=== PATIENT | male | born 1940 | race Caucasian/White ===

== ENCOUNTER → 2020-03-06 | Outpatient (CLI) | payer MEDICARE ==
[2020-03-06 13:11] LABS: Basophils # (auto) 0.1 10 ^3/uL (0-0.2); Basophils % (auto) 1.2 % (0.0-2.0); Eosinophils # (auto) 0.1 10 ^3/uL (0-0.8); Eosinophils % (auto) 1.7 % (0.0-7.0); Hematocrit 43.6 % (41.0-53.0); Hemoglobin 15.1 g/dL (13.5-17.5); Lymphocytes # (auto) 1.6 10 ^3/uL (0.4-5.4); Lymphocytes % (auto) 28.6 % (10.0-50.0); Mean Corpuscular Hemoglobin 31.6 pg (28.0-32.0); Mean Corpuscular Hgb Conc. 34.6 g/dL (32.0-36.0); Mean Corpuscular Volume 91.3 fL (80.0-100.0); Monocytes # (auto) 0.7 10 ^3/uL (0-1.3); Monocytes % (auto) 12.2 % (0.0-12.0); Neutrophils # (auto) 3.1 10 ^3/uL (1.6-8.6); Neutrophils % (auto) 56.3 % (37.0-80.0); Nucleated Red Blood Cells % 0.1 %; Red Blood Cells 4.77 10^6/uL (4.5-5.90); Red Cell Distribution Width 14.3 % (11.8-14.3); White Blood Cell 5.5 10^3/uL (4.4-10.8)
[2020-03-06 13:20] LABS: Urine Bacteria NONE SEEN /hpf (None Seen); Urine Blood Negative /uL (Negative); Urine Mucus FEW (None Seen); Urine Specific Gravity 1.016 (1.001-1.035); Urine WBC 1 /hpf (0 - 3)
[2020-03-06 14:05] LABS: Albumin 3.8 g/dL (3.4-5.0)
[2020-03-06 14:11] LABS: BUN/Creatinine Ratio 12.5; Bilirubin, Total 0.9 mg/dL (0.2-1.0)
== END | disposition home or self-care (01) ==
LOC: LAB 12:56
PROVIDERS: ATTEND Internal Medicine
DX: Z12.5 Encounter for screening for malignant neoplasm of prostate (principal); I25.10 Atherosclerotic heart disease of native coronary artery without angina pectoris; F41.9 Anxiety disorder, unspecified; R73.03 Prediabetes
CPT/HCPCS: 36415; 80053; 80061; 81001; 83036; 84153; 85025

== ENCOUNTER 2022-04-07 14:58 | Emergency (ER) | payer OTHER, MEDICAID ==
[~2022-04-07] VITALS: Ht 188 cm; Wt 43.0 kg
[2022-04-07 19:16] LABS: Urine Bacteria FEW /hpf (None Seen); Urine Blood 1+ /uL (Negative); Urine Mucus FEW (None Seen); Urine Specific Gravity 1.018 (1.001-1.035); Urine WBC 971 /hpf (0 - 3); Urine WBC Clumps PRESENT /hpf (None Seen)
[2022-04-07] MEDS ORDERED: NITR-87 PO (19:41)
[2022-04-07 19:53] VITALS: BP 111/73
== END 2022-04-07 19:55 | disposition home or self-care (01) ==
LOC: ER 14:58
DX: N39.0 Urinary tract infection, site not specified (principal); Z46.6 Encounter for fitting and adjustment of urinary device
CPT/HCPCS: 51702; 81001

== ENCOUNTER 2022-04-26 16:56 | Emergency (ER) | payer OTHER, MEDICAID ==
[~2022-04-26] VITALS: Ht 188 cm; Wt 77.2 kg
[~2022-04-26 16:56] MED LIST: NITR-87 PO
[2022-04-26 17:51] LABS: Basophils # (auto) 0.1 10 ^3/uL (0-0.2); Basophils % (auto) 0.5 % (0.0-2.0); Eosinophils # (auto) 0.2 10 ^3/uL (0-0.8); Eosinophils % (auto) 1.6 % (0.0-7.0); Hematocrit 38.6 % (41.0-53.0); Hemoglobin 12.8 g/dL (13.5-17.5); Lymphocytes # (auto) 2.4 10 ^3/uL (0.4-5.4); Lymphocytes % (auto) 19.8 % (10.0-50.0); Mean Corpuscular Hemoglobin 30.5 pg (28.0-32.0); Mean Corpuscular Hgb Conc. 33.1 g/dL (32.0-36.0); Monocytes # (auto) 0.6 10 ^3/uL (0-1.3); Monocytes % (auto) 5.4 % (0.0-12.0); Neutrophils # (auto) 8.7 10 ^3/uL (1.6-8.6); Neutrophils % (auto) 72.7 % (37.0-80.0); Red Cell Distribution Width 15.5 % (11.8-14.3)
[2022-04-26] MEDS ORDERED: cefTRIAXone 1GM/50ML D5W 50 ML IV ONE (18:00)
[2022-04-26 18:17] LABS: Albumin 3.3 g/dL (3.4-5.0); BUN/Creatinine Ratio 18.1; Calcium 8.3 mg/dL (8.5-10.1); Potassium 3.8 mmol/L (3.5-5.1)
[2022-04-26 18:19] LABS: Bilirubin, Total 0.6 mg/dL (0.2-1.0); Total Protein 7.1 g/dL (6.4-8.2)
[2022-04-26] MEDS ORDERED: BACDST PO (20:01)
[2022-04-26 20:30] VITALS: BP 123/82
== END 2022-04-26 20:37 | disposition home or self-care (01) ==
LOC: ER 16:56
DX: T83.84XA Pain due to genitourinary prosthetic devices, implants and grafts, initial encounter (principal); N39.0 Urinary tract infection, site not specified
CPT/HCPCS: 36415; 51702; 80053; 85025; 96365; 99284; J0696

== ENCOUNTER 2022-07-19 09:41 | Emergency (ER) | payer OTHER, MEDICAID ==
[~2022-07-19] VITALS: Ht 188 cm; Wt 78.0 kg
[~2022-07-19 09:41] MED LIST changes: +BACDST PO
[2022-07-19] MEDS ORDERED: cefTRIAXone SOD 1,000 MG VL IM ONE (10:30)
[2022-07-19] MEDS ORDERED: SODIUM CHLORIDE 0.9% 500 ML IV ONE ×2 (10:30→12:30)
[2022-07-19 10:31] LABS: Basophils # (auto) 0.1 10 ^3/uL (0-0.2); Basophils % (auto) 0.9 % (0.0-2.0); Eosinophils # (auto) 0.1 10 ^3/uL (0-0.8); Eosinophils % (auto) 1.9 % (0.0-7.0); Hematocrit 44.9 % (41.0-53.0); Lymphocytes # (auto) 1.5 10 ^3/uL (0.4-5.4); Mean Corpuscular Hemoglobin 30.3 pg (28.0-32.0); Mean Corpuscular Hgb Conc. 33.5 g/dL (32.0-36.0); Mean Corpuscular Volume 90.6 fL (80.0-100.0); Monocytes # (auto) 0.6 10 ^3/uL (0-1.3); Neutrophils # (auto) 5.5 10 ^3/uL (1.6-8.6); Neutrophils % (auto) 70.2 % (37.0-80.0); Nucleated Red Blood Cells % 0.1 %; Red Blood Cells 4.96 10^6/uL (4.5-5.90); Red Cell Distribution Width 14.7 % (11.8-14.3); White Blood Cell 7.9 10^3/uL (4.4-10.8)
[2022-07-19 10:39] LABS: Albumin 3.9 g/dL (3.4-5.0); Calcium 8.9 mg/dL (8.5-10.1); Potassium 4.8 mmol/L (3.5-5.1)
[2022-07-19 10:42] LABS: BUN/Creatinine Ratio 15.2 (10.0-20.0); Bilirubin, Total 0.8 mg/dL (0.2-1.0)
[2022-07-19 14:07] LABS: Urine WBC None Seen /hpf (0 - 3)
[2022-07-19 14:12] LABS: Urine Bacteria NONE SEEN /hpf (None Seen); Urine Blood 2+ /uL (Negative)
[2022-07-19 14:17] LABS: Urine Specific Gravity 1.015 (1.001-1.035)
[2022-07-19] MEDS ORDERED: CEPH250C PO (15:22)
[2022-07-19 15:48] VITALS: BP 140/95
== END 2022-07-19 16:16 | disposition home or self-care (01) ==
LOC: ER 09:41
DX: N39.0 Urinary tract infection, site not specified (principal); R94.31 Abnormal electrocardiogram [ECG] [EKG]; Z46.6 Encounter for fitting and adjustment of urinary device; Z88.2 Allergy status to sulfonamides
CPT/HCPCS: 36415; 51702; 80053; 81001; 83605; 85025; 87040; 93005; 96360; 96361; 96372; 99284; J0696; J7040

== ENCOUNTER 2022-07-24 17:29 | Emergency (ER) | payer OTHER, MEDICAID ==
[~2022-07-24] VITALS: Ht 188 cm; Wt 78.0 kg
[~2022-07-24 17:29] MED LIST changes: +CEPH250C PO
[2022-07-24 18:07] VITALS: BP 158/93
== END 2022-07-24 18:10 | disposition home or self-care (01) ==
LOC: ER 17:29
DX: Z48.01 Encounter for change or removal of surgical wound dressing (principal); Z95.0 Presence of cardiac pacemaker

== ENCOUNTER → 2022-08-20 | Emergency (ER) | payer OTHER, MEDICAID ==
[~2022-08-20] VITALS: Ht 188 cm; Wt 82.0 kg
[~2022-08-20] MED LIST changes: +SULF400T11 PO; +SULFAMETHOX W/TRIMETH(800/160MG) DS TAB PO ONE
[2022-08-20 21:35] VITALS: BP 148/80
[2022-08-20 22:04] LABS: Urine Bacteria NONE SEEN /hpf (None Seen); Urine Blood 2+ /uL (Negative); Urine Specific Gravity 1.017 (1.001-1.035); Urine WBC 1111 /hpf (0 - 3); Urine WBC Clumps PRESENT /hpf (None Seen)
== END | disposition home or self-care (01) ==
LOC: ER 15:46
DX: Z46.6 Encounter for fitting and adjustment of urinary device (principal); N39.0 Urinary tract infection, site not specified; Z98.890 Other specified postprocedural states; Z79.899 Other long term (current) drug therapy
CPT/HCPCS: 51702; 81001

== ENCOUNTER 2022-08-22 08:54 | Emergency (ER) | payer OTHER, MEDICAID ==
[~2022-08-22] VITALS: Ht 188 cm; Wt 78.1 kg
[~2022-08-22 08:54] MED LIST changes: -SULFAMETHOX W/TRIMETH(800/160MG) DS TAB PO ONE
[2022-08-22 09:37] VITALS: BP 128/80
[2022-08-22] MEDS ORDERED: cefTRIAXone SOD 1,000 MG VL IM ONE (09:45)
== END 2022-08-22 10:08 | disposition home or self-care (01) ==
LOC: ER 08:54
DX: T83.091A Other mechanical complication of indwelling urethral catheter, initial encounter (principal); N39.0 Urinary tract infection, site not specified; Z79.899 Other long term (current) drug therapy
CPT/HCPCS: 96372; 99283; J0696

== ENCOUNTER 2022-08-22 19:37 | Emergency (ER) | payer OTHER, MEDICAID ==
[~2022-08-22] VITALS: Ht 188 cm; Wt 78.1 kg
[2022-08-23 02:07] VITALS: BP 161/95
== END 2022-08-23 02:30 | disposition left against medical advice (07) ==
LOC: ER 19:37
DX: M54.50 Low back pain, unspecified (principal); Z53.29 Procedure and treatment not carried out because of patient's decision for other reasons; Z79.899 Other long term (current) drug therapy

== ENCOUNTER 2022-09-07 10:35 | Emergency (ER) | payer OTHER, MEDICAID ==
[~2022-09-07] VITALS: Ht 188 cm; Wt 78.0 kg
[2022-09-07 11:12] VITALS: BP 128/43; PULSE 90; RESP 16; O2SAT 96
== END 2022-09-07 14:49 | disposition left against medical advice (07) ==
LOC: ER 10:35
DX: R62.7 Adult failure to thrive (principal); R94.31 Abnormal electrocardiogram [ECG] [EKG]; Z53.21 Procedure and treatment not carried out due to patient leaving prior to being seen by health care provider
CPT/HCPCS: 93005

== ENCOUNTER 2024-03-21 12:18 | Emergency (ER) | payer MEDICAID, OTHER ==
[~2024-03-21] VITALS: Ht 177.8 cm; Wt 71.6 kg
[2024-03-21 12:53] LABS: Urine Bacteria None Seen /hpf (None Seen)
--- NOTE | 2024-03-21 12:59 | ED.PDOC ---
General HPI Comments 83y M who presents to the ED for chief complaint of urinary symptoms. Pt states he has been having urinary pain and dysuria since 1 days prior. Pt otherwise denies fever, chills, hematuria, nausea, vomiting, or diarrhea. Pt otherwise denies any other symptoms at this time. Pt denies any past medical history. Chief Complaint: Urinary Time Seen by MD: 12:56 Primary Care Provider: unknown Reviewed notes: Nurses Notes, Medications, Allergies (NKDA ) Allergies: Coded Allergies: NO KNOWN ALLERGIES (Unverified , 04/07/22) Home Meds Active Scripts Ciprofloxacin Hcl (Cipro) 500 Mg Tab, 1 TAB PO BID, #20 TAB Prov:YOHAN MAYNARD MD 03/21/24 Sulfamethoxazole-Trimethoprim (Bactrim) 1 Tab Tab, 1 TAB PO BID for 7 Days, #14 TAB 0 Refills Prov:JAYE CALDERON 08/20/22 Cephalexin (KEFLEX CAPSULE) 250 Mg Cp, 1 CAP PO QID, #28 CAP Prov:DAQUAN AGUILERA MD 07/19/22 Sulfamethoxazole W/Trimethopri (Bactrim Ds Tablet) 1 Tab Tb, 1 TAB PO BID for 14 Days, #28 TAB Prov:RENZO YE NP 04/26/22 Nitrofurantoin Monohydrate Mac (Macrobid) 100 Mg Cap, 100 MG PO BID for 7 Days, #14 CAP Prov:AGUS ESCAMILLA 04/07/22 Information Source: Patient Mode of Arrival: Wheelchair Brought in by: laboratory technologist Severity: Moderate Inability to void: None Timing: Hours Duration: Since onset Prehospital treatment: None Onset: Spontaneous Symptoms: Dysuria History of: None Location: None Penile discharge: None Modifying factors: None associated signs and symptoms: Dysuria Past Medical History PAST MEDICAL HISTORY: Denies Surgical History: CABG Surgical History (Other): L knee surgery Family History Family History: Reviewed,noncontributory to illness Social History Smoker: Non-Smoker Alcohol: Denies ETOH Use Drugs: Denies Drug Use Lives In: Home Constitutional: denies: chills, diaphoresis, fatigue, fever, malaise, sweats, weakness, others EENTM: denies: blurred vision, double vision, ear bleeding, ear discharge, ear drainage, ear pain, ear ringing, eye pain, eye redness, hearing loss, mouth pain, mouth swelling, nasal discharge, nose bleeding, nose congestion, nose pain, photophobia, tearing, throat pain, throat swelling, voice changes, others Respiratory: denies: cough, hemoptysis, orthopnea, SOB at rest, shortness of breath, SOB with excertion, stridor, wheezing, others Cardiovascular: denies: chest pain, dizzy spells, diaphoresis, Dyspnea on exertion, edema, irregular heart beat, left arm pain, lightheadedness, palpitations, PND, syncope, others Gastrointestinal: denies: abdomen distended, abdominal pain, blood streaked bowels, constipated, diarrhea, dysphagia, difficulty swallowing, hematemesis, melena, nausea, poor appetite, poor fluid intake, rectal bleeding, rectal pain, vomiting, others Genitourinary: reports: dysuria; denies: burning, flank pain, frequency, hematuria, incontinence, penile discharge, penile sore, pain, testicle pain, testicle swelling, urgency, others Neurological: denies: dizziness, fainting, headache, left sided numbness, left sided weakness, numbness, paresthesia, pre-existing deficit, right sided numbness, right sided weakness, seizure, speech problems, tingling, tremors, weakness, others Musculoskeletal: denies: back pain, gout, joint pain, joint swelling, muscle pain, muscle stiffness, neck pain, others Integumetry: denies: bruises, change in color, change in hair/nails, dryness, laceration, lesions, lumps, rash, wounds, others Allergic/Immunocompromised: denies: Difficulty Healing, Frequent Infections, Hives, Itching, others Hematologic/Lymphatic: denies: anemia, blood clots, easy bleeding, easy bruising, swollen glands, others Endocrine: denies: excessive hunger, excessive sweating, excessive thirst, excessive urination, flushing, intolerance to cold, intolerance to heat, unexplained weight gain, unexplained weight loss, others Psychiatric: denies: anxiety, bipolar disorder, depression, hopeless, panic disorder, schizophrenia, sleepless, suicidal, others All Other Systems: Reviewed and Negative Physical Exam General Appearance: No Apparent Distress HEENT: Normal ENT Inspection, Pharynx Normal, TMs Normal Neck: Full Range of Motion, Non-Tender, Normal, Normal Inspection Respiratory: Chest Non-Tender, Lungs Clear, No Accessory Muscle Use, No Respiratory Distress, Normal Breath Sounds Cardiovascular: No Edema, No JVD, No Murmur, No Gallop, Normal Peripheral Pulses, Regular Rate/Rhythm Breast Exam: Deferred Gastrointestinal: No Organomegaly, No Pulsatile Mass, Normal Bowel Sounds, Soft, Suprapubic, Tenderness Genitalia: Deferred Pelvic: Deferred Rectal: Deferred Extremities: No calf tenderness, Normal capillary refill, Normal inspection, Normal range of motion, Non-tender, No pedal edema Musculoskeletal : Apperance: Normal Neurologic: Alert, hand cutter II-XII nml as Tested, No Motor Deficits, Normal Affect, Normal Mood, No Sensory Deficits Cerebellar Function: Normal Reflexes: Normal Skin: Dry, Normal Color, Warm Lymphatic: No Adenopathy Was a procedure done? Was a procedure done?: No Differential Diagnosis Kidney stone (Female): N/A Urinary Problem (Male): Plelonephritis, Urethritis, Urinary Retention, UTI X-Ray, Labs, Meds, VS Vital Signs Date Time Temp Pulse Resp B/P (MAP) Pulse Ox O2 Delivery O2 Flow Rate FiO2 03/21/24 12:34 98.7 109 19 128/48 (74) 98 Lab Test 03/21/24 12:31 Range/Units Urine Color Light-orange Yellow Urine Clarity Ex.turbid Clear Urine pH 6.0 5.0-9.0 Urine Specific [place] 1.016 1.001-1.035 Urine Protein 1+ H Negative Urine Ketones Negative Negative Urine Blood 3+ H Negative /uL Urine Nitrite Negative Negative Urine Bilirubin Negative Negative Urine Urobilinogen Normal Negative mg/dL Urine Leukocyte Esterase 3+ Negative /uL Urine RBC 58 0 - 3 /hpf Urine WBC Clumps Present None Seen /hpf Urine Microscopic WBC 2005 H 0-3 /HPF Urine Squamous Epithelial Cells Few <5 /hpf Urine Bacteria None seen None Seen /hpf Urine Hyaline Casts Few 0 - 2 /lpf Urine Glucose Normal Normal mg/dL The urine test is positive for UTI The patient was being discharged on Cipro The patient will return to the emergency department if the condition worsens The patient will follow up with his primary care doctor Time of 1ST Reevaluation: 13:30 Reevaluation 1ST: Unchanged Patient Education/Counseling: Diagnosis, Treatment, Prognosis, Need For Follow Up Family Education/Counseling: Diagnosis, Treatment, Prognosis, Need For Follow Up Additional Information - I reviewed the following notes from patient's past medical encounters: - The following tests were ordered, and results were reviewed by me: (Labs, X- Ray, EKG): ua, - Additional information was gathered from interviewing the following independent Historian: (Family, Other Providers, EMT): pt laboratory technologist - I reviewed and agreed with the following test results read by other provider: (X-ray, CT, US): none - I discussed treatments and results with medical personnel and: (consultants, family): none Departure 1 Departure Time of Disposition: 14:07 Impression: Primary Impression: Acute UTI (urinary tract infection) Disposition: 01 HOME / SELF CARE / HOMELESS Condition: Fair e-Prescriptions Ciprofloxacin Hcl (Cipro) 500 Mg Tab 1 TAB PO BID, #20 TAB Prov: YOHAN MAYNARD MD 03/21/24 Discharged With: Self Critical Care Note Critical Care Time?: No Stability Stability form required: No Heart Score Heart Score: Heart Score Response (Comments) Value History N/A 0 EKG N/A 0 Age N/A 0 Risk Factors N/A 0 Troponin N/A 0 Total 0 I personally scribed for YOHNA MAYNARD MD ([email or web address]) on 03/21/24 at 12:59. Electronically submitted by Anika Lazo ([email or web address]). YOHAN MAYNARD MD Mar 21, 2024 12:59
[2024-03-21 13:17] LABS: Urine Blood 3+ /uL (Negative); Urine Clarity Ex.Turbid (Clear); Urine Color Light-Orange (Yellow); Urine Hyaline Cast FEW /lpf (0 - 2); Urine Protein, UAD 1+ (Negative); Urine Specific Gravity 1.016 (1.001-1.035); Urine Squamous Epithelial Cell FEW /hpf (<5); Urine Urobilinogen Normal (Negative); Urine WBC 2005 /HPF (0-3); Urine WBC Clumps PRESENT /hpf (None Seen)
[2024-03-21] MEDS ORDERED: CIPR-173 PO (14:04)
[2024-03-21] MEDS: CIPROFLOXACIN HCL 500 MG TAB PO ONE (14:25)
[2024-03-21 14:27] VITALS: BP 128/68; PULSE 78; RESP 18; TEMP 98.7; O2SAT 98
== END 2024-03-21 14:34 | disposition home or self-care (01) ==
LOC: ER 12:18
DX: N39.0 Urinary tract infection, site not specified (principal); Z95.1 Presence of aortocoronary bypass graft
CPT/HCPCS: 81001; 87086